=== PATIENT | male | born 1965 | race Caucasian/White ===

== ENCOUNTER → 2018-03-07 | Outpatient (CLI) | payer OTHER ==
[~2018-03-07] MED LIST: ASPIRIN325 PO; BENICAR20 MG PO; BYSTOLIC 5 MG5 M1 PO; DIOVAN320 MG PO; EFFIENT10 MG PO; LIPITOR40 MG PO; LISINOPRIL10 MG PO; NITROGLYCERIN0.4 MG SL; TORADOL 10 MG T10 MG PO; ZYRTEC10 M2 PO
--- NOTE | ~2018-03-07 | EXE ---
[facility] [employer] [place] [address] STRESS ECHOCARDIOGRAM Name: SHELLYGENTRY HAMILTON Room #: REG LAYLA Ramsey#: [id number] Admission: 03/07/18 Attend Phys: Nayan Pereira, Discharge: Date of : 65 Date of Service: 03/07/18 1052 Report #: [id number] THIS REPORT FOR: //name// APPROVED REPORT Study performed: 03/07/2018 09:01:16 Exam: Stress Echocardiogram Indication: CAD Patient Location: Out-Patient Stress Nurse: Hailey Jewell RN Room #: Echo lab 2 Status: routine Ht: 5 ft 11 in HR: 69 bpm BP: 138/88 mmHg Medical History Medical History: CAD s/p stent, HTN Cardiac Risk Factors: HTN, Hyperlipidemia Previous Cardiac Procedures: PCI Exercise History: Physically active Procedure The patient underwent an Exercise Stress Test using the Christian Protocol. Blood pressure, heart rate, and EKG were monitored. An Echocardiogram was performed by pest technician in four stages in quad fashion. At peak stress, four selected images were obtained and placed side by side with resting images for comparison. Stress Test Details Stress Test: Exercise stress testing was performed using a Christian protocol. HR Resting HR: 69 bpm Max Heart Rate (APMHR): 168 bpm Max HR Achieved: 169 bpm Target HR (85% APMHR): 142 bpm % of APMHR: 100 Recovery HR: 95 bpm HR response to stress: Normal HR response to stress BP Resting BP: 138/88 mmHg Max BP: 166/82 mmHg Recovery BP: 126/84 mmHg [facility] [address] [place] [address] STRESS ECHOCARDIOGRAM Name: GENTRY BRAVO Room #: REG [facility]#: [id number] Admission: 03/07/18 Attend Phys: Nayan Pereira, Discharge: Date of : 65 Date of Service: 03/07/18 1052 Report #: [id number] Clinical Reason for Termination: Maximal effort Exercise duration: 10 min 39 sec Highest Stage Achieved: Stage 4: 4.2 mph at 16% grade. Exercise capacity: 13.7 METs Overall Exercise Capacity for Age: Good Pre-Stress Echo The resting Echocardiogram showed normal left ventricular contractility with an estimated Ejection Fraction of about 50%. Post-Stress Echo The stress Echocardiogram showed normal left ventricular contractility with an estimated Ejection Fraction of about 65-70%. Conclusion Clinical Response: Non-ischemic Exercise Capacity: Average Stress ECG Response: Equivocal Stress Echo Images: Non-ischemic Other Information Study Quality: Adequate <ELECTRONICALLY SIGNED> By: Nayan Pereira MD, [facility] 03/07/18 1052 105 1052 Nayan Pereira MD, FACC /INF
== END ==
LOC: CV 08:58
DX: I25.10 Atherosclerotic heart disease of native coronary artery without angina pectoris (principal); I25.5 Ischemic cardiomyopathy; I10 Essential (primary) hypertension